=== PATIENT | male | born 1975 | race African-American/Black ===

== ENCOUNTER 2023-10-04 16:26 | Inpatient (IN) | payer MEDICAID, OTHER ==
[~2023-10-04] VITALS: Ht 188 cm; Wt 96.4 kg
[2023-10-04 17:05] LABS: Hematocrit 36.4 % (41.0-53.0); Mean Corpuscular Hemoglobin 27.7 pg (28.0-32.0); Mean Corpuscular Hgb Conc. 32.8 g/dL (32.0-36.0); Mean Corpuscular Volume 84.4 fL (80.0-100.0); Red Blood Cells 4.32 10^6/uL (4.5-5.90); Red Cell Distribution Width 15.4 % (11.8-14.3); White Blood Cell 9.6 10^3/uL (4.4-10.8)
[2023-10-04 17:25] LABS: Alanine Aminotransferase 36 U/L (7-40); Alkaline Phosphatase 101 U/L (46-116); Anion Gap 8 (5-15); Aspartate Aminotransferase 21 U/L (13-40); BUN/Creatinine Ratio 14.7 (10.0-20.0); Blood Urea Nitrogen 17 mg/dL (9-23); Calcium 9.5 mg/dL (8.5-10.1); Carbon Dioxide 25 mmol/L (20-30); Chloride 106 mmol/L (98-107); Glucose 133 mg/dL (74-106); Magnesium 1.7 mg/dL (1.6-2.6); Sodium 139 mmol/L (136-145)
[2023-10-04 17:26] LABS: Albumin 4.4 g/dL (3.2-4.8); Bilirubin, Total 0.2 mg/dL (0.2-1.0); Total Protein 7.6 g/dL (5.7-8.2)
[2023-10-04 17:27] LABS: INR 1.14 (0.9-1.15); Partial Thromboplastin Time 27.1 SEC (24.5-34.5)
[2023-10-04 17:29] LABS: Band Neutrophils % (manual) 0; Basophils % (manual) 0 (0.0-2.0); Blast Cells 0; Metamyelocytes % 0; Myelocytes % 0; Promyelocytes % 0; Reactive Lymphocytes 0
[2023-10-04 17:56] LABS: Eosinophils % (manual) 2 (0-7); Lymphocytes % (manual) 24 (10.0-50.0); Monocytes % (manual) 8 (0-12); Platelet Estimate Adequate
[2023-10-04] MEDS: HYDROcodone-ACET 10/325MG TAB PO ONE (22:25)
[2023-10-05] MEDS: IOHEXOL 350 MG/ML 100ML IJ ONE (02:08)
[2023-10-05] MEDS ORDERED: HYDR-4798 PO (02:35)
[2023-10-05] MEDS ORDERED: IBUP-1455 PO (02:35)
[2023-10-05] MEDS: ENOXAPARIN SOD 40 MG/0.4 ML SYRINGE SC ONE (05:01)
[2023-10-05] MEDS: NITROGLYCERIN 2% OINT 1GM PKG TD ONE (06:32)
[2023-10-05] MEDS: hydrALAZINE HCL 20 MG/ML VL IV ONE (06:33)
[2023-10-05] MEDS ORDERED: hydrALAZINE HCL 20 MG/ML VL IV PRN (07:00)
[2023-10-05] MEDS ORDERED: ONDANSETRON HCL 4 MG/2 ML VIAL IV PRN (07:00)
[2023-10-05] MEDS ORDERED: ACETAMINOPHEN 325 MG TAB PO PRN (07:00)
[2023-10-05] MEDS ORDERED: NITROGLYCERIN 0.4 MG SL TAB SL PRN (07:00)
[2023-10-05] MEDS ORDERED: MORPHINE SULFATE INJ 2 MG/ml SYRG IV PRN (07:00)
[2023-10-05 07:30] VITALS: PULSE 68; RESP 14; O2SAT 98
[2023-10-05 07:46] LABS: LDL Cholesterol 55 mg/dL (< 100); Triglycerides 92 mg/dL (< 150)
[2023-10-05 07:48] LABS: Cholesterol 95 mg/dL (< 200); HDL Cholesterol 25 mg/dL (40-59)
[2023-10-05 09:28] LABS: Urine Bacteria None Seen /hpf (None Seen)
[2023-10-05 10:03] LABS: Urine Blood Negative /uL (Negative); Urine Clarity Clear (Clear); Urine Color Light-Yellow (Yellow); Urine Protein, UAD TRACE (Negative); Urine Specific Gravity 1.041 (1.001-1.035); Urine Urobilinogen Normal (Negative); Urine WBC 1 /hpf (0 - 3); Urine pH 5.5 (5.0-9.0)
[2023-10-05 10:12] LABS: Amphetamine Screen, Urine Neg (NEGATIVE)
[2023-10-05 10:14] LABS: Benzodiazephine Screen, Urine Neg (NEGATIVE)
[2023-10-05 10:15] LABS: Barbiturate Scree,Urine Neg (NEGATIVE); Cannabinoid Screen, Urine Neg (NEGATIVE); Cocaine Screen, Urine Neg (NEGATIVE); Opiate Scree,Urine Neg (NEGATIVE); Phencyclidine Screen, Urine Neg (NEGATIVE)
[2023-10-05 10:30] VITALS: BP 125/84; PULSE 90; RESP 22; TEMP 97.8; O2SAT 96
[2023-10-05] MEDS: LISINOPRIL 5 MG TAB PO SCH (11:11)
[2023-10-05] MEDS ORDERED: LOSA-533 PO (11:13)
[2023-10-05] MEDS ORDERED: FURO40TA4 PO (11:13)
[2023-10-05] MEDS ORDERED: ATOR-507 PO (11:13)
[2023-10-05] MEDS ORDERED: CARV12.544 PO (11:13)
[2023-10-05] MEDS ORDERED: HYDR-4902 PO (11:13)
[2023-10-05] MEDS ORDERED: SPIR25TA8 PO (11:13)
[2023-10-05] MEDS ORDERED: DAPA1TAB4 PO (11:13)
[2023-10-05] MEDS ORDERED: METF-370 PO (11:13)
[2023-10-05] MEDS ORDERED: ASPI1TAB19 PO (11:13)
[2023-10-05] MEDS ORDERED: CLOP75TA70 PO (11:13)
[2023-10-05] MEDS: ASPirin 81 mg TAB PO ONE (12:19)
[2023-10-05] MEDS: METOPROLOL SUCCINATE XL 50 MG TAB PO ONE (12:19)
[2023-10-05 13:00] VITALS: BP 117/74; PULSE 75; RESP 18; TEMP 98.6; O2SAT 94
[2023-10-05] MEDS: metFORMIN HYDROCHLORIDE 500 MG TAB PO SCH (15:49)
[2023-10-05 17:00] VITALS: BP 102/69; PULSE 102; RESP 18; TEMP 98.7; O2SAT 95
[2023-10-05 20:00] VITALS: PULSE 71; PULSE 92; RESP 16; O2SAT 95
[2023-10-05 21:00] VITALS: BP 107/71; PULSE 71; RESP 16; TEMP 98.6; O2SAT 94
[2023-10-05] MEDS: ATORVASTATIN 20 MG TAB PO SCH (21:39)
[2023-10-05] MEDS: CARVEDILOL 12.5 MG TAB PO SCH (21:40)
[2023-10-05] MEDS ORDERED: ATORVASTATIN 20 MG TAB PO SCH (22:00)
[2023-10-05] MEDS: MORPHINE SULFATE INJ 2 MG/ml SYRG IV PRN (22:41)
[2023-10-06] VITALS (7 sets, daily range): BP systolic 94–147; BP diastolic 49–95; PULSE 66–88; RESP 15–16; TEMP 97.8–98.6; O2SAT 93–99
[2023-10-06 06:32] LABS: Chloride 108 mmol/L (98-107); Potassium 3.8 mmol/L (3.5-5.1); Sodium 137 mmol/L (136-145)
[2023-10-06 06:33] LABS: Anion Gap 2 (5-15); Carbon Dioxide 27 mmol/L (20-30)
[2023-10-06 06:34] LABS: Calcium 9.1 mg/dL (8.7-10.4)
[2023-10-06 06:38] LABS: BUN/Creatinine Ratio 11.7 (10.0-20.0); Blood Urea Nitrogen 11 mg/dL (9-23); Glucose 179 mg/dL (74-106)
[2023-10-06] MEDS: Dapagliflozin Propanediol (Farxiga) 10 MG PO SCH (09:17)
[2023-10-06] MEDS: FUROSEMIDE 40 MG TAB PO SCH (10:00)
[2023-10-06] MEDS: LOSARTAN POTASSIUM 25 MG TAB PO SCH (10:00)
[2023-10-06] MEDS ORDERED: METOPROLOL SUCCINATE XL 50 MG TAB PO SCH (10:00)
[2023-10-06] MEDS: ASPirin 81 mg TAB PO SCH (10:48)
[2023-10-06] MEDS: SPIRONOLACTONE 25 MG TAB PO SCH (10:48)
[2023-10-06] MEDS: CLOPIDOGREL BISULFATE 75 MG TAB PO SCH (10:49)
[2023-10-06] MEDS ORDERED: METF-370 PO (11:00)
[2023-10-06] MEDS ORDERED: DAPA1TAB4 PO (11:00)
[2023-10-06] MEDS ORDERED: ASPI1TAB19 PO (11:00)
[2023-10-06] MEDS ORDERED: SPIR25TA8 PO (11:00)
[2023-10-06] MEDS ORDERED: ATOR-507 PO (11:00)
[2023-10-06] MEDS ORDERED: CARV12.544 PO (11:00)
[2023-10-06] MEDS ORDERED: LOSA-533 PO (11:00)
[2023-10-06] MEDS ORDERED: HYDR-4798 PO (11:00)
[2023-10-07 00:54] VITALS: BP 143/91; PULSE 95; RESP 16; TEMP 98.6; O2SAT 98
[2023-10-07 05:00] VITALS: BP 138/94; PULSE 71; RESP 14; TEMP 98.2; O2SAT 98
[2023-10-07 08:00] VITALS: PULSE 79; PULSE 86; RESP 16; O2SAT 93
[2023-10-07 08:40] VITALS: BP 147/81; PULSE 86; RESP 16; TEMP 98.5; O2SAT 93
[2023-10-07] MEDS: HYDROcodone-ACET 5/325MG TAB PO PRN (10:52)
[2023-10-07 20:00] VITALS: PULSE 86; PULSE 87; RESP 18; O2SAT 97
[2023-10-07 21:00] VITALS: BP_SYST 122; BP_SYST 142; BP_DIAS 102; BP_DIAS 86; PULSE 77; PULSE 86; RESP 17; RESP 18; TEMP 97.7; TEMP 98.5; O2SAT 97; O2SAT 99
[2023-10-07] MEDS: MELATONIN 5 MG TAB PO ONE (23:20)
[2023-10-08] VITALS (9 sets, daily range): BP systolic 103–132; BP diastolic 58–90; PULSE 70–87; RESP 18–20; TEMP 97.7–98.4; O2SAT 90–99
[2023-10-08] MEDS: MELATONIN 5 MG TAB PO ONE (23:59)
[2023-10-09 01:17] VITALS: BP 133/73; PULSE 72; RESP 20; TEMP 98.2; O2SAT 96
[2023-10-09 05:25] VITALS: BP 134/89; PULSE 76; RESP 20; TEMP 97.8; O2SAT 94
[2023-10-09 08:00] VITALS: PULSE 63; PULSE 78; RESP 18; O2SAT 98
[2023-10-09 09:00] VITALS: BP 132/81; PULSE 75; RESP 18; TEMP 98.4; O2SAT 99
[2023-10-09] MEDS ORDERED: MELATONIN 5 MG TAB PO ONE (23:00)
== END 2023-10-09 15:00 | disposition home or self-care (01) | DRG 313 ==
LOC: ER 16:32 → TELE 10-05 06:55 → TELE-CENTR 10-05 10:18
PROVIDERS: ADMIT Nurse Practitioner; ATTEND Internal Medicine Geriatric Medicine
DX: R07.89 Other chest pain (principal); Z59.00 Homelessness unspecified; I25.110 Atherosclerotic heart disease of native coronary artery with unstable angina pectoris; E11.9 Type 2 diabetes mellitus without complications; I10 Essential (primary) hypertension; F12.90 Cannabis use, unspecified, uncomplicated; E66.9 Obesity, unspecified; Z95.1 Presence of aortocoronary bypass graft; Z72.0 Tobacco use; Z68.27 Body mass index [BMI] 27.0-27.9, adult
CPT/HCPCS: 36415; 71045; 71275; 80048; 80053; 80061; 80307; 81001; 83036; 83735; 83880; 84484; 85007; 85027; 85379; 85610; 85730; 93005; 93306; 96372; 96374; G0378